=== PATIENT | female | born 1940 | race Caucasian/White ===

== ENCOUNTER 2020-09-17 12:28 | Outpatient (CLI) | payer MEDICARE, BC | END 2020-09-17 12:29 | disposition home or self-care (01) | LOC: CSHMAMMO 12:28 | PROVIDERS: ATTEND Internal Medicine | DX: R92.8 Other abnormal and inconclusive findings on diagnostic imaging of breast (principal) | CPT/HCPCS: G0279 ==

== ENCOUNTER 2021-03-28 07:49 | Inpatient (IN) | payer MEDICARE, BC ==
[2021-03-28 08:43] LABS: #Eosinphils 0.1 10x3/uL (0.0-0.5); #Monocytes 0.8 10x3/uL (0.0-1.1); %Basophils 0.4 % (0.0-2.0); %Eosinophils 1.3 % (0.0-6.0); %Lymphocytes 12.6 % (18.0-47.0); %Monocytes 7.7 % (0.0-10.0); %Neutrophils 77.5 % (40.0-75.0); Hemoglobin 12.7 g/dL (12.0-15.5); Mean Corpuscular HGB CONC 33.8 g/dL (32.0-36.0); Mean Corpuscular Hemoglobin 30.2 pg (27.0-33.0); Mean Corpuscular Volume 89.5 fl (81.6-98.3); Mean Platelet Volume 9.7 fl (7.4-10.4); Platelet Count 205 10x3/uL (150-450); RBC Distribution Width 13.6 % (11.5-14.5); White Blood Cell (WBC) Count 10.3 10x3/uL (3.5-10.5)
[2021-03-28] MEDS ORDERED: Cefepime 2 GM VIAL ONE (08:49)
[2021-03-28 08:55] LABS: ALT (SGPT) 13 U/L (8-55); AST (SGOT) 13 U/L (5-34); Albumin 3.5 g/dL (3.4-4.8); Alkaline Phosphatase 66 U/L (40-110); Anion Gap 13 mmol/L (10-20); BUN (Urea Nitrogen) 20 mg/dL (9.8-20.1); Bilirubin, Total 0.5 mg/dL (0.2-1.2); Calc. Creatinine Clearance 0 mL/min (70-130); Calcium 9.2 mg/dL (7.8-10.44); Carbon Dioxide 21 mmol/L (23-31); Chloride 106 mmol/L (98-107); Glucose 129 mg/dL (83-110); Potassium 3.8 mmol/L (3.5-5.1); Protein, Total 6.5 g/dL (5.8-8.1); Sodium 136 mmol/L (136-145)
[2021-03-28] MEDS ORDERED: Ondansetron PF 4 MG/2 ML Vial IVP PRN (10:45)
[2021-03-28] MEDS ORDERED: HYDROcodone/Acetaminophen 5/325 mg Tablet PO PRN (10:45)
[2021-03-28] MEDS ORDERED: Acetaminophen 325 MG TAB PO PRN (10:45)
[2021-03-28] MEDS ORDERED: Senokot S 8.6-50 MG TAB PO PRN (10:45)
[2021-03-28] MEDS ORDERED: Lidocaine 1% w/Epinephrine 1:100K 20 ML VIAL IJ PRN (11:43)
[2021-03-28] MEDS ORDERED: Ibuprofen 600 MG TAB PO PRN (11:57)
[2021-03-28 12:36] VITALS: BMI 23.1
[2021-03-28] MEDS: HYDROcodone/Acetaminophen 5/325 mg Tablet PO PRN ×2 (17:50→21:52)
[2021-03-28] MEDS ORDERED: Zolpidem Tartrate 5 MG TAB PO SCH (23:00)
[2021-03-29] MEDS ORDERED: LUNESTA 3 MG PO SCH (00:30)
[2021-03-29] MEDS: HYDROcodone/Acetaminophen 5/325 mg Tablet PO PRN ×3 (03:54→20:57)
[2021-03-29 04:54] LABS: #Basophils 0.1 10x3/uL (0.0-0.2); #Eosinphils 0.2 10x3/uL (0.0-0.5); #Monocytes 0.9 10x3/uL (0.0-1.1); #Neutrophils 5.8 10x3/uL (1.5-8.4); %Basophils 0.7 % (0.0-2.0); %Eosinophils 2.5 % (0.0-6.0); %Neutrophils 64.6 % (40.0-75.0); Hemoglobin 11.8 g/dL (12.0-15.5); Mean Corpuscular HGB CONC 32.7 g/dL (32.0-36.0); Mean Corpuscular Hemoglobin 30.1 pg (27.0-33.0); Mean Corpuscular Volume 92.1 fl (81.6-98.3); Platelet Count 206 10x3/uL (150-450); RBC Distribution Width 13.4 % (11.5-14.5); Red Blood Cell (RBC) Count 3.92 10x6/uL (3.90-5.03); White Blood Cell (WBC) Count 8.9 10x3/uL (3.5-10.5)
[2021-03-29 05:03] LABS: ALT (SGPT) 11 U/L (8-55); AST (SGOT) 14 U/L (5-34); Albumin 3.3 g/dL (3.4-4.8); Alkaline Phosphatase 66 U/L (40-110); Anion Gap 13 mmol/L (10-20); BUN (Urea Nitrogen) 17 mg/dL (9.8-20.1); Bilirubin, Total 0.5 mg/dL (0.2-1.2); Calc. Creatinine Clearance 51 mL/min (70-130); Calcium 8.7 mg/dL (7.8-10.44); Carbon Dioxide 24 mmol/L (23-31); Chloride 108 mmol/L (98-107); Globulin 2.2 g/dL (2.4-3.5); Glucose 96 mg/dL (83-110); Magnesium 2.1 mg/dL (1.6-2.6); Phosphorus 3.9 mg/dL (2.3-4.7); Potassium 4.2 mmol/L (3.5-5.1); Protein, Total 5.5 g/dL (5.8-8.1); Sodium 141 mmol/L (136-145)
[2021-03-29 05:19] LABS: Free T4 (Free Thyroxine) 1.04 ng/dL (0.70-1.48); Thyroid Stimulating Hormone 6.5505 uIU/mL (0.35-4.94)
[2021-03-29] MEDS: Levothyroxine Sodium 88 MCG TAB PO SCH (05:36)
[2021-03-29] MEDS: Ubidecarenone 50 MG CAP PO SCH (08:29)
[2021-03-29] MEDS: Enoxaparin Sodium 40 MG/0.4 ML SYRINGE SC SCH (08:29)
[2021-03-29] MEDS: Multivitamin W/ Minerals 1 TAB PO SCH (08:30)
[2021-03-29] MEDS: Aspirin 325 mg Enteric Coated Tablet PO SCH (08:30)
[2021-03-29] MEDS: Vancomycin HCl 1 GM in Sodium Chloride 0.9% 250 ML 250 ML IVPB SCH (08:30)
[2021-03-29] MEDS ORDERED: RESVERATROL PO SCH (09:00)
[2021-03-29] MEDS ORDERED: GRAPE SKIN EXTRACT PO SCH (09:00)
[2021-03-29 12:08] LABS: SARS-CoV-2 PCR by NAA Not Detected (NotDetected)
[2021-03-29 12:31] LABS: Hemoglobin A1c 5.6 % (4.0-6.0)
[2021-03-29] MEDS: Atorvastatin Calcium 40 MG TAB PO SCH (21:00)
[2021-03-29] MEDS ORDERED: Zolpidem Tartrate 5 MG TAB PO SCH (21:00)
[2021-03-29] MEDS: LUNESTA 3 MG PO SCH (21:01)
[2021-03-29] MEDS: Bisacodyl 5 MG TAB PO PRN (21:01)
[2021-03-29] MEDS: cefTRIAXone\\ROCEPHIN 1 GM in Sodium Chloride 0.9% 100 ML IVPB SCH (21:18)
[2021-03-30] MEDS: HYDROcodone/Acetaminophen 5/325 mg Tablet PO PRN ×5 (04:13→20:18)
[2021-03-30 04:36] LABS: #Basophils 0.1 10x3/uL (0.0-0.2); #Eosinphils 0.3 10x3/uL (0.0-0.5); #Monocytes 0.8 10x3/uL (0.0-1.1); #Neutrophils 5.9 10x3/uL (1.5-8.4); %Basophils 0.7 % (0.0-2.0); %Eosinophils 2.9 % (0.0-6.0); %Lymphocytes 17.4 % (18.0-47.0); %Monocytes 9.8 % (0.0-10.0); %Neutrophils 69.1 % (40.0-75.0); Hemoglobin 11.5 g/dL (12.0-15.5); Mean Corpuscular Hemoglobin 29.8 pg (27.0-33.0); Mean Corpuscular Volume 90.4 fl (81.6-98.3); Mean Platelet Volume 9.5 fl (7.4-10.4); Platelet Count 232 10x3/uL (150-450); RBC Distribution Width 13.3 % (11.5-14.5); Red Blood Cell (RBC) Count 3.86 10x6/uL (3.90-5.03); White Blood Cell (WBC) Count 8.6 10x3/uL (3.5-10.5)
[2021-03-30 04:43] LABS: ALT (SGPT) 9 U/L (8-55); AST (SGOT) 14 U/L (5-34); Albumin 3.1 g/dL (3.4-4.8); Alkaline Phosphatase 65 U/L (40-110); Anion Gap 11 mmol/L (10-20); BUN (Urea Nitrogen) 16 mg/dL (9.8-20.1); Bilirubin, Total 0.4 mg/dL (0.2-1.2); Calc. Creatinine Clearance 58 mL/min (70-130); Calcium 8.4 mg/dL (7.8-10.44); Carbon Dioxide 24 mmol/L (23-31); Chloride 108 mmol/L (98-107); Globulin 2.1 g/dL (2.4-3.5); Glucose 110 mg/dL (83-110); Magnesium 2.1 mg/dL (1.6-2.6); Phosphorus 3.6 mg/dL (2.3-4.7); Potassium 3.9 mmol/L (3.5-5.1); Protein, Total 5.2 g/dL (5.8-8.1); Sodium 139 mmol/L (136-145)
[2021-03-30] MEDS: Levothyroxine Sodium 88 MCG TAB PO SCH (06:05)
[2021-03-30] MEDS: Multivitamin W/ Minerals 1 TAB PO SCH (08:32)
[2021-03-30] MEDS: Aspirin 325 mg Enteric Coated Tablet PO SCH (08:32)
[2021-03-30] MEDS: Enoxaparin Sodium 40 MG/0.4 ML SYRINGE SC SCH (08:32)
[2021-03-30] MEDS: Vancomycin HCl 1 GM in Sodium Chloride 0.9% 250 ML 250 ML IVPB SCH (08:33)
[2021-03-30] MEDS: Ubidecarenone 50 MG CAP PO SCH (08:33)
[2021-03-30 08:43] LABS: Vancomycin, Trough 4.5 ug/mL
[2021-03-30] MEDS: Bisacodyl 5 MG TAB PO PRN (16:53)
[2021-03-30] MEDS: Atorvastatin Calcium 40 MG TAB PO SCH (20:18)
[2021-03-30] MEDS: cefTRIAXone\\ROCEPHIN 1 GM in Sodium Chloride 0.9% 100 ML IVPB SCH (20:19)
[2021-03-30] MEDS: Vancomycin HCl 750 MG in Sodium Chloride 0.9% 250 ML 250 ML IVPB SCH (21:02)
[2021-03-30] MEDS: LUNESTA 3 MG PO SCH (21:40)
[2021-03-31] MEDS: HYDROcodone/Acetaminophen 5/325 mg Tablet PO PRN ×3 (03:27→22:12)
[2021-03-31] MEDS: Levothyroxine Sodium 75 MCG TAB PO SCH (05:29)
[2021-03-31 07:24] LABS: #Basophils 0.1 10x3/uL (0.0-0.2); #Eosinphils 0.3 10x3/uL (0.0-0.5); #Monocytes 0.7 10x3/uL (0.0-1.1); #Neutrophils 4.7 10x3/uL (1.5-8.4); %Basophils 0.7 % (0.0-2.0); %Eosinophils 3.5 % (0.0-6.0); %Lymphocytes 23.1 % (18.0-47.0); %Monocytes 8.9 % (0.0-10.0); %Neutrophils 63.4 % (40.0-75.0); Hemoglobin 10.6 g/dL (12.0-15.5); Mean Corpuscular HGB CONC 31.8 g/dL (32.0-36.0); Mean Corpuscular Hemoglobin 29.3 pg (27.0-33.0); Mean Platelet Volume 9.2 fl (7.4-10.4); Platelet Count 259 10x3/uL (150-450); RBC Distribution Width 13.2 % (11.5-14.5); Red Blood Cell (RBC) Count 3.62 10x6/uL (3.90-5.03); White Blood Cell (WBC) Count 7.4 10x3/uL (3.5-10.5)
[2021-03-31 07:46] LABS: ALT (SGPT) 9 U/L (8-55); AST (SGOT) 13 U/L (5-34); Albumin 2.9 g/dL (3.4-4.8); Alkaline Phosphatase 63 U/L (40-110); Anion Gap 11 mmol/L (10-20); BUN (Urea Nitrogen) 12 mg/dL (9.8-20.1); Bilirubin, Total 0.3 mg/dL (0.2-1.2); Calc. Creatinine Clearance 59 mL/min (70-130); Calcium 8.2 mg/dL (7.8-10.44); Carbon Dioxide 25 mmol/L (23-31); Chloride 109 mmol/L (98-107); Glucose 95 mg/dL (83-110); Magnesium 2.2 mg/dL (1.6-2.6); Phosphorus 3.7 mg/dL (2.3-4.7); Potassium 4.2 mmol/L (3.5-5.1); Protein, Total 4.9 g/dL (5.8-8.1); Sodium 141 mmol/L (136-145)
[2021-03-31] MEDS: Ubidecarenone 50 MG CAP PO SCH (08:43)
[2021-03-31] MEDS: Multivitamin W/ Minerals 1 TAB PO SCH (08:45)
[2021-03-31] MEDS: Aspirin 325 mg Enteric Coated Tablet PO SCH (08:46)
[2021-03-31] MEDS: Enoxaparin Sodium 40 MG/0.4 ML SYRINGE SC SCH (08:46)
[2021-03-31] MEDS: Vancomycin HCl 750 MG in Sodium Chloride 0.9% 250 ML 250 ML IVPB SCH ×2 (08:50→22:11)
[2021-03-31 21:34] LABS: Vancomycin, Trough 8.5 ug/mL
[2021-03-31] MEDS: cefTRIAXone\\ROCEPHIN 1 GM in Sodium Chloride 0.9% 100 ML IVPB SCH (22:11)
[2021-03-31] MEDS: Atorvastatin Calcium 40 MG TAB PO SCH (22:12)
[2021-03-31] MEDS: LUNESTA 3 MG PO SCH (22:56)
[2021-04-01 05:31] LABS: #Basophils 0.1 10x3/uL (0.0-0.2); #Eosinphils 0.3 10x3/uL (0.0-0.5); #Monocytes 0.5 10x3/uL (0.0-1.1); #Neutrophils 3.2 10x3/uL (1.5-8.4); %Basophils 0.9 % (0.0-2.0); %Eosinophils 4.9 % (0.0-6.0); %Lymphocytes 29.8 % (18.0-47.0); %Monocytes 8.4 % (0.0-10.0); %Neutrophils 55.7 % (40.0-75.0); Mean Corpuscular Hemoglobin 29.3 pg (27.0-33.0); Mean Corpuscular Volume 91.7 fl (81.6-98.3); Mean Platelet Volume 9.1 fl (7.4-10.4); Platelet Count 290 10x3/uL (150-450); RBC Distribution Width 13.2 % (11.5-14.5); Red Blood Cell (RBC) Count 3.75 10x6/uL (3.90-5.03); White Blood Cell (WBC) Count 5.7 10x3/uL (3.5-10.5)
[2021-04-01 06:04] LABS: ALT (SGPT) 11 U/L (8-55); AST (SGOT) 16 U/L (5-34); Alkaline Phosphatase 65 U/L (40-110); Anion Gap 12 mmol/L (10-20); BUN (Urea Nitrogen) 10 mg/dL (9.8-20.1); Bilirubin, Total 0.3 mg/dL (0.2-1.2); Calc. Creatinine Clearance 57 mL/min (70-130); Calcium 8.5 mg/dL (7.8-10.44); Carbon Dioxide 25 mmol/L (23-31); Chloride 110 mmol/L (98-107); Globulin 2.1 g/dL (2.4-3.5); Glucose 93 mg/dL (83-110); Magnesium 2.2 mg/dL (1.6-2.6); Phosphorus 3.9 mg/dL (2.3-4.7); Potassium 4.2 mmol/L (3.5-5.1); Protein, Total 5.1 g/dL (5.8-8.1); Sodium 143 mmol/L (136-145)
[2021-04-01] MEDS: Levothyroxine Sodium 75 MCG TAB PO SCH (06:12)
[2021-04-01] MEDS: Levothyroxine Sodium 100 MCG TAB PO SCH (06:12)
[2021-04-01] MEDS ORDERED: diphenhydrAMINE 25 MG CAP PO PRN (07:39)
[2021-04-01] MEDS: Ubidecarenone 50 MG CAP PO SCH (09:57)
[2021-04-01] MEDS: Aspirin 325 mg Enteric Coated Tablet PO SCH (09:58)
[2021-04-01] MEDS: HYDROcodone/Acetaminophen 5/325 mg Tablet PO PRN ×3 (09:58→20:59)
[2021-04-01] MEDS: Methyl Salicylate/Menthol 85 GM TUBE TOP SCH ×3 (10:00→21:03)
[2021-04-01] MEDS: Multivitamin W/ Minerals 1 TAB PO SCH (10:01)
[2021-04-01] MEDS: Vancomycin HCl 1 GM in Sodium Chloride 0.9% 250 ML 250 ML IVPB SCH ×2 (10:01→21:02)
[2021-04-01] MEDS: Enoxaparin Sodium 40 MG/0.4 ML SYRINGE SC SCH (10:01)
[2021-04-01] MEDS: Polyethylene Glycol 3350 17 GM Packet PO SCH ×2 (10:01→22:43)
[2021-04-01] MEDS: Atorvastatin Calcium 40 MG TAB PO SCH (20:58)
[2021-04-01] MEDS: cefTRIAXone\\ROCEPHIN 1 GM in Sodium Chloride 0.9% 100 ML IVPB SCH (22:40)
[2021-04-01] MEDS: LUNESTA 3 MG PO SCH (22:41)
[2021-04-02] MEDS: Levothyroxine Sodium 100 MCG TAB PO SCH (05:53)
[2021-04-02 06:31] LABS: #Basophils 0.1 10x3/uL (0.0-0.2); #Eosinphils 0.3 10x3/uL (0.0-0.5); #Monocytes 0.5 10x3/uL (0.0-1.1); #Neutrophils 2.7 10x3/uL (1.5-8.4); %Eosinophils 4.9 % (0.0-6.0); %Lymphocytes 32.6 % (18.0-47.0); %Monocytes 9.5 % (0.0-10.0); %Neutrophils 51.6 % (40.0-75.0); Hemoglobin 10.9 g/dL (12.0-15.5); Mean Corpuscular Hemoglobin 29.4 pg (27.0-33.0); Mean Corpuscular Volume 91.9 fl (81.6-98.3); Mean Platelet Volume 9.3 fl (7.4-10.4); Platelet Count 309 10x3/uL (150-450); RBC Distribution Width 13.2 % (11.5-14.5); Red Blood Cell (RBC) Count 3.71 10x6/uL (3.90-5.03); White Blood Cell (WBC) Count 5.2 10x3/uL (3.5-10.5)
[2021-04-02 06:51] LABS: ALT (SGPT) 15 U/L (8-55); AST (SGOT) 20 U/L (5-34); Albumin 3.1 g/dL (3.4-4.8); Alkaline Phosphatase 65 U/L (40-110); Anion Gap 13 mmol/L (10-20); BUN (Urea Nitrogen) 14 mg/dL (9.8-20.1); Bilirubin, Total 0.2 mg/dL (0.2-1.2); Calc. Creatinine Clearance 61 mL/min (70-130); Calcium 8.5 mg/dL (7.8-10.44); Carbon Dioxide 22 mmol/L (23-31); Chloride 111 mmol/L (98-107); Glucose 98 mg/dL (83-110); Magnesium 2.2 mg/dL (1.6-2.6); Phosphorus 4.2 mg/dL (2.3-4.7); Potassium 4.1 mmol/L (3.5-5.1); Protein, Total 5.1 g/dL (5.8-8.1); Sodium 142 mmol/L (136-145)
[2021-04-02 08:12] LABS: Vancomycin, Trough 16.8 ug/mL
[2021-04-02] MEDS: Ubidecarenone 50 MG CAP PO SCH (10:18)
[2021-04-02] MEDS: Polyethylene Glycol 3350 17 GM Packet PO SCH ×2 (10:19→20:41)
[2021-04-02] MEDS: Methyl Salicylate/Menthol 85 GM TUBE TOP SCH (10:19)
[2021-04-02] MEDS: Multivitamin W/ Minerals 1 TAB PO SCH (10:19)
[2021-04-02] MEDS: Aspirin 325 mg Enteric Coated Tablet PO SCH (10:19)
[2021-04-02] MEDS: Enoxaparin Sodium 40 MG/0.4 ML SYRINGE SC SCH (10:19)
[2021-04-02] MEDS ORDERED: Menthol/Camphor Lotion 222 ml Bottle TOP SCH (11:00)
[2021-04-02] MEDS: HYDROcodone/Acetaminophen 5/325 mg Tablet PO PRN (12:06)
[2021-04-02] MEDS: Menthol/Camphor Lotion 222 ml Bottle TOP SCH ×2 (15:43→20:43)
[2021-04-02] MEDS: Cephalexin 500 MG CAP PO SCH ×2 (18:17→23:23)
[2021-04-02] MEDS: Atorvastatin Calcium 40 MG TAB PO SCH (20:36)
[2021-04-02] MEDS: LUNESTA 3 MG PO SCH (20:36)
[2021-04-03 05:54] LABS: ALT (SGPT) 20 U/L (8-55); AST (SGOT) 27 U/L (5-34); Albumin 3.1 g/dL (3.4-4.8); Alkaline Phosphatase 78 U/L (40-110); Anion Gap 13 mmol/L (10-20); BUN (Urea Nitrogen) 14 mg/dL (9.8-20.1); Bilirubin, Total 0.2 mg/dL (0.2-1.2); Calc. Creatinine Clearance 58 mL/min (70-130); Calcium 8.8 mg/dL (7.8-10.44); Carbon Dioxide 23 mmol/L (23-31); Chloride 110 mmol/L (98-107); Globulin 2.1 g/dL (2.4-3.5); Glucose 104 mg/dL (83-110); Magnesium 2.3 mg/dL (1.6-2.6); Phosphorus 4.2 mg/dL (2.3-4.7); Protein, Total 5.2 g/dL (5.8-8.1); Sodium 142 mmol/L (136-145)
[2021-04-03] MEDS: Cephalexin 500 MG CAP PO SCH ×2 (06:13→13:06)
[2021-04-03] MEDS: Levothyroxine Sodium 100 MCG TAB PO SCH (06:13)
[2021-04-03 06:24] LABS: #Basophils 0.1 10x3/uL (0.0-0.2); #Eosinphils 0.2 10x3/uL (0.0-0.5); #Monocytes 0.5 10x3/uL (0.0-1.1); #Neutrophils 2.9 10x3/uL (1.5-8.4); %Basophils 1.3 % (0.0-2.0); %Eosinophils 3.8 % (0.0-6.0); %Lymphocytes 33.7 % (18.0-47.0); %Monocytes 8.7 % (0.0-10.0); Hemoglobin 11.8 g/dL (12.0-15.5); Mean Corpuscular HGB CONC 32.9 g/dL (32.0-36.0); Mean Corpuscular Hemoglobin 29.6 pg (27.0-33.0); Mean Corpuscular Volume 90.2 fl (81.6-98.3); Platelet Count 322 10x3/uL (150-450); RBC Distribution Width 13.2 % (11.5-14.5); Red Blood Cell (RBC) Count 3.98 10x6/uL (3.90-5.03); White Blood Cell (WBC) Count 5.5 10x3/uL (3.5-10.5)
[2021-04-03] MEDS: Ubidecarenone 50 MG CAP PO SCH (09:57)
[2021-04-03] MEDS: Enoxaparin Sodium 40 MG/0.4 ML SYRINGE SC SCH (09:58)
[2021-04-03] MEDS: Polyethylene Glycol 3350 17 GM Packet PO SCH (09:58)
[2021-04-03] MEDS: Multivitamin W/ Minerals 1 TAB PO SCH (09:58)
[2021-04-03] MEDS: Aspirin 325 mg Enteric Coated Tablet PO SCH (09:58)
[2021-04-03] MEDS: Menthol/Camphor Lotion 222 ml Bottle TOP SCH (10:04)
[2021-04-03 11:44] VITALS: BP 140/74; TEMP 98.8
== END 2021-04-03 13:55 | disposition home health service (06) | DRG 603 ==
LOC: SUATTDRO 07:49 → CSHERS 07:49 → CSHTELE 12:05 → OBSVTOIN 03-29 13:46
PROVIDERS: ADMIT Family Medicine; ATTEND Internal Medicine
PROC: 0H9KXZZ Drainage of Right Lower Leg Skin, External Approach (ICD-10-PCS; principal; 2021-03-28)
DX: L03.115 Cellulitis of right lower limb (principal); Z20.822 Contact with and (suspected) exposure to COVID-19; E03.9 Hypothyroidism, unspecified; L02.415 Cutaneous abscess of right lower limb; M85.861 Other specified disorders of bone density and structure, right lower leg; Z78.0 Asymptomatic menopausal state; Z86.73 Personal history of transient ischemic attack (TIA), and cerebral infarction without residual deficits; J30.9 Allergic rhinitis, unspecified; Z79.82 Long term (current) use of aspirin; Z79.890 Hormone replacement therapy; Z79.899 Other long term (current) drug therapy; Z90.710 Acquired absence of both cervix and uterus; Z88.8 Allergy status to other drugs, medicaments and biological substances; Z91.048 Other nonmedicinal substance allergy status; G50.0 Trigeminal neuralgia; R59.1 Generalized enlarged lymph nodes; E78.5 Hyperlipidemia, unspecified; Z90.89 Acquired absence of other organs
CPT/HCPCS: 36415; 36416; 80053; 80202; 83036; 83605; 83735; 84100; 84439; 84443; 84481; 85025; 86140; 87040; 87070; 87205; 93923; 96365; 96366; 96368; G0378; J0692; J0696; J1650; J3370; J3490; J7050; U0003; U0005

== ENCOUNTER 2021-08-03 12:39 | Inpatient (IN) | payer MEDICARE, BC ==
[2021-08-03 12:59] LABS: #Basophils 0.1 10x3/uL (0.0-0.2); #Eosinphils 0.2 10x3/uL (0.0-0.5); #Monocytes 0.3 10x3/uL (0.0-1.1); %Basophils 1.4 % (0.0-2.0); %Eosinophils 3.5 % (0.0-6.0); %Lymphocytes 34.9 % (18.0-47.0); %Monocytes 6.5 % (0.0-10.0); Hemoglobin 14.3 g/dL (12.0-15.5); Mean Corpuscular HGB CONC 33.6 g/dL (32.0-36.0); Mean Corpuscular Hemoglobin 30.1 pg (27.0-33.0); Mean Corpuscular Volume 89.5 fl (81.6-98.3); Mean Platelet Volume 9.5 fl (7.4-10.4); Platelet Count 229 10x3/uL (150-450); RBC Distribution Width 13.1 % (11.5-14.5); Red Blood Cell (RBC) Count 4.75 10x6/uL (3.90-5.03); White Blood Cell (WBC) Count 5.1 10x3/uL (3.5-10.5)
[2021-08-03 13:00] LABS: #Neutrophils 2.7 10x3/uL (1.5-8.4); %Neutrophils 53.7 % (40.0-75.0)
[2021-08-03 13:14] LABS: ALT (SGPT) 25 U/L (8-55); AST (SGOT) 27 U/L (5-34); Albumin 4.1 g/dL (3.4-4.8); Alkaline Phosphatase 73 U/L (40-110); Anion Gap 14 mmol/L (10-20); BUN (Urea Nitrogen) 22 mg/dL (9.8-20.1); Bilirubin, Total 0.6 mg/dL (0.2-1.2); Calc. Creatinine Clearance 0 mL/min (70-130); Calcium 9.6 mg/dL (7.8-10.44); Carbon Dioxide 23 mmol/L (23-31); Chloride 107 mmol/L (98-107); Globulin 2.3 g/dL (2.4-3.5); Glucose 99 mg/dL (83-110); Potassium 4.1 mmol/L (3.5-5.1); Protein, Total 6.4 g/dL (5.8-8.1); Sodium 140 mmol/L (136-145)
[2021-08-03] MEDS ORDERED: Aspirin Chewable 81 MG TAB ONE (13:31)
[2021-08-03] MEDS ORDERED: Ondansetron ODT 4 MG TAB PO PRN (14:54)
[2021-08-03] MEDS ORDERED: Acetaminophen 650 MG Suppository PR PRN (14:54)
[2021-08-03] MEDS ORDERED: Ondansetron PF 4 MG/2 ML Vial IVP PRN (14:54)
[2021-08-03] MEDS ORDERED: hydrALAZINE 20 MG/ML VIAL SLOW IVP PRN (14:54)
[2021-08-03 15:34] VITALS: BMI 22.8
[2021-08-03] MEDS: Atorvastatin Calcium 40 MG TAB PO SCH (21:05)
[2021-08-03] MEDS: Melatonin 3 MG TAB PO PRN (21:06)
[2021-08-04 00:03] LABS: SARS-CoV-2 NAA Rapid Test Not Detected (NotDetected)
[2021-08-04] MEDS: Acetaminophen 325 MG TAB PO PRN ×3 (02:13→20:23)
[2021-08-04 03:54] LABS: #Basophils 0.1 10x3/uL (0.0-0.2); #Eosinphils 0.3 10x3/uL (0.0-0.5); #Monocytes 0.5 10x3/uL (0.0-1.1); #Neutrophils 3.5 10x3/uL (1.5-8.4); %Basophils 0.9 % (0.0-2.0); %Lymphocytes 33.1 % (18.0-47.0); %Monocytes 7.5 % (0.0-10.0); Hemoglobin 13.7 g/dL (12.0-15.5); Mean Corpuscular HGB CONC 33.5 g/dL (32.0-36.0); Mean Corpuscular Hemoglobin 30.2 pg (27.0-33.0); Mean Corpuscular Volume 90.3 fl (81.6-98.3); Mean Platelet Volume 9.5 fl (7.4-10.4); Platelet Count 229 10x3/uL (150-450); RBC Distribution Width 13.2 % (11.5-14.5); Red Blood Cell (RBC) Count 4.53 10x6/uL (3.90-5.03); White Blood Cell (WBC) Count 6.6 10x3/uL (3.5-10.5)
[2021-08-04 04:09] LABS: Anion Gap 13 mmol/L (10-20); BUN (Urea Nitrogen) 20 mg/dL (9.8-20.1); Calc. Creatinine Clearance 57 mL/min (70-130); Calcium 9.3 mg/dL (7.8-10.44); Carbon Dioxide 22 mmol/L (23-31); Chloride 109 mmol/L (98-107); Cholesterol 201 mg/dl (< 200 Desired); Glucose 94 mg/dL (83-110); HDL Cholesterol 50 mg/dL (>60 Neg Risk); LDL Cholesterol, Calculated 127 mg/dL; Potassium 3.8 mmol/L (3.5-5.1); Sodium 140 mmol/L (136-145); Triglycerides 118 mg/dL (Less than 150)
[2021-08-04] MEDS ORDERED: Levothyroxine Sodium 100 MCG TAB PO SCH (06:00)
[2021-08-04] MEDS ORDERED: Levothyroxine Sodium 88 MCG TAB PO SCH (08:15)
[2021-08-04] MEDS: Cholecalciferol 1,000 UNITS (25 MCG) TAB PO SCH ×2 (08:41→20:23)
[2021-08-04] MEDS: Folic Acid/Vit B Comp W-C PO SCH (08:41)
[2021-08-04] MEDS ORDERED: Aspirin 325 mg Enteric Coated Tablet PO SCH (09:00)
[2021-08-04] MEDS ORDERED: Lorazepam 1 MG TAB PO SCH (09:15)
[2021-08-04] MEDS: Melatonin 3 MG TAB PO PRN (20:22)
[2021-08-04] MEDS: Atorvastatin Calcium 40 MG TAB PO SCH (20:23)
[2021-08-05 04:52] LABS: Anion Gap 14 mmol/L (10-20); BUN (Urea Nitrogen) 20 mg/dL (9.8-20.1); Calc. Creatinine Clearance 58 mL/min (70-130); Calcium 9.1 mg/dL (7.8-10.44); Carbon Dioxide 20 mmol/L (23-31); Chloride 106 mmol/L (98-107); Glucose 97 mg/dL (83-110); Sodium 136 mmol/L (136-145)
[2021-08-05 04:56] LABS: Potassium 4.3 mmol/L (3.5-5.1)
[2021-08-05 05:27] LABS: #Basophils 0.1 10x3/uL (0.0-0.2); #Eosinphils 0.3 10x3/uL (0.0-0.5); #Monocytes 0.5 10x3/uL (0.0-1.1); #Neutrophils 3.6 10x3/uL (1.5-8.4); %Basophils 0.7 % (0.0-2.0); %Eosinophils 3.9 % (0.0-6.0); %Lymphocytes 33.9 % (18.0-47.0); %Monocytes 7.4 % (0.0-10.0); Mean Corpuscular HGB CONC 33.8 g/dL (32.0-36.0); Mean Corpuscular Hemoglobin 30.4 pg (27.0-33.0); Mean Corpuscular Volume 89.8 fl (81.6-98.3); Mean Platelet Volume 9.5 fl (7.4-10.4); Platelet Count 223 10x3/uL (150-450); RBC Distribution Width 13.2 % (11.5-14.5); Red Blood Cell (RBC) Count 4.61 10x6/uL (3.90-5.03); White Blood Cell (WBC) Count 6.7 10x3/uL (3.5-10.5)
[2021-08-05] MEDS ORDERED: Levothyroxine Sodium 88 MCG TAB PO SCH (06:00)
[2021-08-05] MEDS: Cholecalciferol 1,000 UNITS (25 MCG) TAB PO SCH (08:08)
[2021-08-05] MEDS: Acetaminophen 325 MG TAB PO PRN (08:08)
[2021-08-05] MEDS: Folic Acid/Vit B Comp W-C PO SCH (08:19)
[2021-08-05] MEDS ORDERED: Clopidogrel Bisulfate 75 MG TAB PO SCH (09:00)
[2021-08-05] MEDS ORDERED: Aspirin 81 mg Enteric Coated Tablet PO SCH (09:00)
[2021-08-05 11:22] VITALS: BP 135/70; TEMP 97.6
[2021-08-05 12:31] LABS: Hemoglobin A1c 5.6 % (4.0-6.0)
== END 2021-08-05 12:30 | disposition home or self-care (01) | DRG 65 ==
LOC: CSHERS 12:39 → CSHTELE 15:06 → OBSVTOIN 08-04 15:36
PROVIDERS: ADMIT Family Medicine; ATTEND Family Medicine
DX: I63.9 Cerebral infarction, unspecified (principal); I16.1 Hypertensive emergency; E78.5 Hyperlipidemia, unspecified; E03.9 Hypothyroidism, unspecified; M85.80 Other specified disorders of bone density and structure, unspecified site; R47.81 Slurred speech; R47.1 Dysarthria and anarthria; Z88.8 Allergy status to other drugs, medicaments and biological substances; Z79.82 Long term (current) use of aspirin; Z79.899 Other long term (current) drug therapy; Z79.2 Long term (current) use of antibiotics; Z86.73 Personal history of transient ischemic attack (TIA), and cerebral infarction without residual deficits; Z90.710 Acquired absence of both cervix and uterus
CPT/HCPCS: 36415; 36416; 70450; 70551; 71045; 80048; 80053; 80061; 83036; 84443; 84484; 85025; 93005; 93306; 93880; 94760; G0378; U0002

== ENCOUNTER 2021-10-02 12:15 | Outpatient (CLI) | payer MEDICARE, BC | END 2021-10-02 12:16 | disposition home or self-care (01) | LOC: CSHMAMMO 12:15 | PROVIDERS: ATTEND Internal Medicine | DX: N63.11 Unspecified lump in the right breast, upper outer quadrant (principal) | CPT/HCPCS: 76642; 77065; G0279 ==

== ENCOUNTER → 2021-10-04 | Day surgery (SDC) | payer MEDICARE, BC | END | disposition home or self-care (01) | LOC: CSHULT 09:22 | PROVIDERS: ATTEND Internal Medicine | PROC: 0H9T3ZX Drainage of Right Breast, Percutaneous Approach, Diagnostic (ICD-10-PCS; principal; 2021-10-04) | DX: C50.411 Malignant neoplasm of upper-outer quadrant of right female breast (principal); Z91.048 Other nonmedicinal substance allergy status | CPT/HCPCS: 19083; 88305; 88341; 88342 ==

== ENCOUNTER 2022-01-02 13:42 | Outpatient (CLI) | payer MEDICARE, BC | END 2022-01-02 13:43 | disposition home or self-care (01) | LOC: CSHMAMMO 13:42 | PROVIDERS: ATTEND Internal Medicine Hematology & Oncology | DX: Z13.820 Encounter for screening for osteoporosis (principal); T38.6X5A Adverse effect of antigonadotrophins, antiestrogens, antiandrogens, not elsewhere classified, initial encounter; M85.851 Other specified disorders of bone density and structure, right thigh | CPT/HCPCS: 77080 ==

== ENCOUNTER 2022-01-17 13:46 | Inpatient (IN) | payer MEDICARE, BC ==
[~2022-01-17 13:46] MED LIST: Iopamidol 370 76% 100 ML VIAL ONE
[2022-01-17 14:16] LABS: #Basophils 0.1 10x3/uL (0.0-0.2); #Eosinphils 0.2 10x3/uL (0.0-0.5); #Monocytes 0.4 10x3/uL (0.0-1.1); #Neutrophils 2.5 10x3/uL (1.5-8.4); %Eosinophils 3.5 % (0.0-6.0); %Lymphocytes 36.6 % (18.0-47.0); %Monocytes 7.2 % (0.0-10.0); %Neutrophils 51.5 % (40.0-75.0); Hemoglobin 14.2 g/dL (12.0-15.5); Mean Corpuscular HGB CONC 34.6 g/dL (32.0-36.0); Mean Corpuscular Hemoglobin 30.5 pg (27.0-33.0); Mean Corpuscular Volume 88.2 fl (81.6-98.3); Mean Platelet Volume 9.3 fl (7.4-10.4); Platelet Count 238 10x3/uL (150-450); RBC Distribution Width 13.4 % (11.5-14.5); Red Blood Cell (RBC) Count 4.65 10x6/uL (3.90-5.03); White Blood Cell (WBC) Count 4.8 10x3/uL (3.5-10.5)
[2022-01-17 14:31] LABS: INR-International Normal Ratio 0.9; PTT 26.9 sec (22.0-33.0); Prothrombin Time 9.3 sec (9.5-12.1)
[2022-01-17 14:34] LABS: ALT (SGPT) 26 U/L (8-55); AST (SGOT) 25 U/L (5-34); Albumin 4.2 g/dL (3.4-4.8); Alkaline Phosphatase 85 U/L (40-110); Anion Gap 13 mmol/L (10-20); BUN (Urea Nitrogen) 19 mg/dL (9.8-20.1); Bilirubin, Total 0.4 mg/dL (0.2-1.2); CRP (Inflammatory) Less than 0.50 mg/dL (= or < 0.5); Calc. Creatinine Clearance 0 mL/min (70-130); Calcium 9.9 mg/dL (7.8-10.44); Carbon Dioxide 23 mmol/L (23-31); Chloride 107 mmol/L (98-107); Estimated GFR 78; Globulin 2.7 g/dL (2.4-3.5); Glucose 154 mg/dL (83-110); Potassium 3.7 mmol/L (3.5-5.1); Protein, Total 6.9 g/dL (5.8-8.1); Sodium 139 mmol/L (136-145)
[2022-01-17] MEDS ORDERED: Aspirin Chewable 81 MG TAB ONE (15:56)
[2022-01-17 18:09] LABS: Bilirubin Neg (Negative); Blood, Urine Negative (Negative); Clarity Clear (Clear); Glucose, Urine (Dipstick) Normal (Negative); Ketone, Urine Negative (Negative); Leukocyte 25 (Negative); Nitrite Negative (Negative); Protein, Urine (Dipstick) Negative (Neg-Trace); Specific Gravity, Urine 1.015 (1.002-1.036); Urobilinogen Normal mg/dL (Less than 2)
[2022-01-17 18:16] LABS: RBC/HPF 0-3 HPF (0-3)
[2022-01-17 18:17] LABS: Bacteria/HPF 2+ HPF (None Seen); Mucous/LPF 1+ LPF (<2+); Squamous Epithelial 0-3 HPF (0-3)
[2022-01-17 18:52] LABS: SARS-CoV-2 NAA Rapid Test Not Detected (NotDetected)
[2022-01-17 21:03] VITALS: BMI 22.8
[2022-01-17] MEDS ORDERED: Atorvastatin Calcium 20 MG TAB PO SCH (22:30)
[2022-01-18 04:33] LABS: #Basophils 0.1 10x3/uL (0.0-0.2); #Eosinphils 0.2 10x3/uL (0.0-0.5); #Monocytes 0.5 10x3/uL (0.0-1.1); %Basophils 1.1 % (0.0-2.0); %Eosinophils 3.8 % (0.0-6.0); %Lymphocytes 31.2 % (18.0-47.0); %Monocytes 8.9 % (0.0-10.0); %Neutrophils 54.8 % (40.0-75.0); Hemoglobin 13.4 g/dL (12.0-15.5); Mean Corpuscular HGB CONC 33.8 g/dL (32.0-36.0); Mean Corpuscular Hemoglobin 30.2 pg (27.0-33.0); Mean Corpuscular Volume 89.4 fl (81.6-98.3); Mean Platelet Volume 9.5 fl (7.4-10.4); Platelet Count 213 10x3/uL (150-450); RBC Distribution Width 13.5 % (11.5-14.5); Red Blood Cell (RBC) Count 4.43 10x6/uL (3.90-5.03); White Blood Cell (WBC) Count 5.5 10x3/uL (3.5-10.5)
[2022-01-18 04:46] LABS: Anion Gap 11 mmol/L (10-20); BUN (Urea Nitrogen) 16 mg/dL (9.8-20.1); Calc. Creatinine Clearance 62 mL/min (70-130); Calcium 9.4 mg/dL (7.8-10.44); Carbon Dioxide 23 mmol/L (23-31); Chloride 111 mmol/L (98-107); Estimated GFR 87; Glucose 92 mg/dL (83-110); Magnesium 2.3 mg/dL (1.6-2.6); Potassium 3.7 mmol/L (3.5-5.1); Sodium 141 mmol/L (136-145)
[2022-01-18 04:58] LABS: Cholesterol 199 mg/dl (< 200 Desired); HDL Cholesterol 50 mg/dL (>60 Neg Risk); LDL Cholesterol, Calculated 125 mg/dL; Triglycerides 119 mg/dL (Less than 150)
[2022-01-18] MEDS ORDERED: Levothyroxine Sodium 88 MCG TAB PO SCH (06:00)
[2022-01-18] MEDS ORDERED: GRAPE SKIN EXTRACT PO SCH (09:00)
[2022-01-18] MEDS ORDERED: Stress 600 With Zinc 1 TAB PO SCH (09:00)
[2022-01-18] MEDS ORDERED: Ubidecarenone 50 MG CAP PO SCH (09:00)
[2022-01-18] MEDS ORDERED: Ascorbic Acid 500 mg Chewable Tablet PO SCH (09:00)
[2022-01-18] MEDS ORDERED: [UNRECOGNIZED DRUG - OTHER] PO SCH (09:00)
[2022-01-18] MEDS ORDERED: Cholecalciferol 1,000 UNITS (25 MCG) TAB PO SCH (09:00)
[2022-01-18] MEDS ORDERED: Clopidogrel Bisulfate 75 MG TAB PO SCH (09:00)
[2022-01-18] MEDS ORDERED: RESVERATROL PO SCH (09:00)
[2022-01-18] MEDS ORDERED: Enoxaparin Sodium 40 MG/0.4 ML SYRINGE SC SCH (09:00)
[2022-01-18] MEDS ORDERED: Letrozole 2.5 MG TAB PO SCH (09:00)
[2022-01-18] MEDS ORDERED: Aspirin 81 mg Enteric Coated Tablet PO SCH (09:00)
[2022-01-18] MEDS ORDERED: Polyethylene Glycol 3350 17 GM Packet PO SCH (09:00)
[2022-01-18] MEDS ORDERED: Loratadine 10 MG TAB PO SCH (09:00)
[2022-01-18 13:15] LABS: Hemoglobin A1c 5.5 % (4.0-6.0)
[2022-01-18 16:59] LABS: ANA Symphony (Qualitative) Negative (Negative); ANA Symphony (Quantitative) 0.4 Ratio (< 0.7 Negative); dsDNA IgG Antibody 0.6 IU/mL (<10 Negative)
[2022-01-18 18:05] VITALS: BP 159/78; TEMP 99.2
[2022-01-18] MEDS ORDERED: Zolpidem Tartrate 5 MG TAB PO SCH (21:00)
[2022-01-18] MEDS ORDERED: Atorvastatin Calcium 20 MG TAB PO SCH (21:00)
== END 2022-01-18 18:49 | disposition home or self-care (01) | DRG 66 ==
LOC: CSHERS 13:46 → CSHTELE 20:42
PROVIDERS: ADMIT Family Medicine; ATTEND Family Medicine
DX: I63.9 Cerebral infarction, unspecified (principal); R47.81 Slurred speech; R29.810 Facial weakness; I10 Essential (primary) hypertension; E03.9 Hypothyroidism, unspecified; E78.00 Pure hypercholesterolemia, unspecified; C50.911 Malignant neoplasm of unspecified site of right female breast; Z20.822 Contact with and (suspected) exposure to COVID-19; M85.80 Other specified disorders of bone density and structure, unspecified site; E78.2 Mixed hyperlipidemia; Z86.73 Personal history of transient ischemic attack (TIA), and cerebral infarction without residual deficits; Z90.49 Acquired absence of other specified parts of digestive tract; Z90.710 Acquired absence of both cervix and uterus; Z88.8 Allergy status to other drugs, medicaments and biological substances; Z79.899 Other long term (current) drug therapy; Z87.891 Personal history of nicotine dependence; Z79.82 Long term (current) use of aspirin
CPT/HCPCS: 36415; 36416; 70450; 70496; 70498; 70551; 71045; 80048; 80053; 80061; 81003; 81015; 82550; 83036; 83735; 84443; 84484; 85025; 85610; 85652; 85730; 86038; 86140; 86225; 93005; 93306; 93880; J1650; Q9967; U0002

== ENCOUNTER 2022-06-13 18:21 | Inpatient (IN) | payer MEDICARE, BC ==
[2022-06-13] MEDS ORDERED: Acetaminophen 500 MG TAB ONE (19:05)
[2022-06-13 19:22] LABS: ALT (SGPT) 18 U/L (8-55); AST (SGOT) 23 U/L (5-34); Albumin 3.6 g/dL (3.4-4.8); Alkaline Phosphatase 106 U/L (40-110); Anion Gap 15 mmol/L (10-20); BUN (Urea Nitrogen) 26 mg/dL (9.8-20.1); Bilirubin, Total 0.7 mg/dL (0.2-1.2); Calc. Creatinine Clearance 0 mL/min (70-130); Calcium 9.1 mg/dL (7.8-10.44); Carbon Dioxide 21 mmol/L (23-31); Chloride 101 mmol/L (98-107); Estimated GFR 82; Globulin 2.4 g/dL (2.4-3.5); Glucose 130 mg/dL (83-110); Hemoglobin 13.4 g/dL (12.0-15.5); Mean Corpuscular HGB CONC 34.6 g/dL (32.0-36.0); Mean Corpuscular Hemoglobin 30.4 pg (27.0-33.0); Mean Corpuscular Volume 87.8 fl (81.6-98.3); Mean Platelet Volume 9.5 fl (7.4-10.4); Platelet Count 246 10x3/uL (150-450); RBC Distribution Width 13.8 % (11.5-14.5); Red Blood Cell (RBC) Count 4.41 10x6/uL (3.90-5.03); Sodium 133 mmol/L (136-145); White Blood Cell (WBC) Count 19.5 10x3/uL (3.5-10.5)
[2022-06-13] MEDS ORDERED: Cefepime 2 GM VIAL ONE (19:36)
[2022-06-13 19:44] LABS: MDiff Complete? YES
[2022-06-13] MEDS ORDERED: Vancomycin 1.5 GRAM/300 ML BAG 1.5 GM in Premix Bag 1 BAG IVPB SCH (19:45)
[2022-06-13 19:47] LABS: Band 13 % (5-11); Lymphocytes 6 % (21-51); Monocytes 7 % (0-10); Neutrophil 74 % (42-75)
[2022-06-13 19:48] LABS: Platelet Morphology Comment Appears Adequate; RBC Morphology N
[2022-06-13] MEDS ORDERED: Calcium Carbonate 500 MG ChewTAB PO PRN (19:55)
[2022-06-13] MEDS ORDERED: HYDROcodone/Acetaminophen 5/325 mg Tablet PO PRN (19:55)
[2022-06-13] MEDS ORDERED: Guaifenesin DM 100-10/5 ML UDCUP PO PRN (19:55)
[2022-06-13] MEDS ORDERED: Ondansetron PF 4 MG/2 ML Vial IVP PRN (19:55)
[2022-06-13] MEDS ORDERED: Lactated Ringer's 1,000 ML IV SCH (20:00)
[2022-06-13 20:15] LABS: SARS-CoV-2 NAA Rapid Test Not Detected (NotDetected)
[2022-06-13] MEDS ORDERED: GRAPE SKIN EXTRACT PO SCH (21:00)
[2022-06-13] MEDS ORDERED: RESVERATROL PO SCH (21:00)
[2022-06-13 21:58] LABS: Bilirubin Neg (Negative); Blood, Urine Negative (Negative); Clarity Clear (Clear); Glucose, Urine (Dipstick) Normal (Negative); Ketone, Urine 15 mg/dL (Negative); Leukocyte 25 (Negative); Nitrite Negative (Negative); Protein, Urine (Dipstick) 30 mg/dl (Neg-Trace); Urobilinogen Normal mg/dL (Less than 2)
[2022-06-13 22:02] LABS: Bacteria/HPF 2+ HPF (None Seen); Mucous/LPF 1+ LPF (<2+); RBC/HPF None Seen HPF (0-3); Squamous Epithelial 0-3 HPF (0-3); Transitional Epithelial 0-3 HPF (None Seen); WBC/HPF 0-3 HPF (0-3)
[2022-06-13] MEDS ORDERED: Zolpidem Tartrate 5 MG TAB ONE (22:31)
[2022-06-13] MEDS ORDERED: Benzonatate 100 MG CAP ONE (22:32)
[2022-06-13] MEDS ORDERED: Famotidine 20 MG TAB ONE (22:37)
[2022-06-13] MEDS ORDERED: Atorvastatin Calcium 40 MG TAB ONE (22:37)
[2022-06-14 00:42] VITALS: BMI 24.2
[2022-06-14 01:05] LABS: Legionella Urinary Ag Negative (Negative); Strep pneumo Urine Ag NEGATIVE (NEGATIVE)
[2022-06-14] MEDS: Atorvastatin Calcium 40 MG TAB PO SCH ×2 (03:11→20:13)
[2022-06-14] MEDS: Benzonatate 100 MG CAP PO SCH ×4 (03:11→20:16)
[2022-06-14] MEDS: Cholecalciferol 1,000 UNITS (25 MCG) TAB PO SCH ×3 (03:11→20:15)
[2022-06-14] MEDS: Famotidine 20 MG TAB PO SCH ×3 (03:11→20:15)
[2022-06-14] MEDS: Zolpidem Tartrate 5 MG TAB PO SCH ×2 (03:12→22:00)
[2022-06-14 04:28] LABS: Hemoglobin 12.2 g/dL (12.0-15.5); Mean Corpuscular HGB CONC 33.3 g/dL (32.0-36.0); Mean Corpuscular Hemoglobin 31.2 pg (27.0-33.0); Mean Corpuscular Volume 93.6 fl (81.6-98.3); Mean Platelet Volume 9.8 fl (7.4-10.4); Platelet Count 207 10x3/uL (150-450); RBC Distribution Width 14.2 % (11.5-14.5); Red Blood Cell (RBC) Count 3.91 10x6/uL (3.90-5.03); White Blood Cell (WBC) Count 20.7 10x3/uL (3.5-10.5)
[2022-06-14 04:37] LABS: Anion Gap 10 mmol/L (10-20); BUN (Urea Nitrogen) 17 mg/dL (9.8-20.1); Calc. Creatinine Clearance 72 mL/min (70-130); Calcium 8.8 mg/dL (7.8-10.44); Carbon Dioxide 19 mmol/L (23-31); Chloride 112 mmol/L (98-107); Estimated GFR 89; Glucose 123 mg/dL (83-110); Potassium 3.9 mmol/L (3.5-5.1); Sodium 137 mmol/L (136-145)
[2022-06-14 04:56] LABS: MDiff Complete? YES
[2022-06-14 05:02] LABS: Band 23 % (5-11); Lymphocytes 2 % (21-51); Metamyelocyte 1 % (0-0); Monocytes 4 % (0-10); Neutrophil 69 % (42-75); Reactive Lymphocytes 1 % (0-10)
[2022-06-14 05:03] LABS: Platelet Morphology Comment Appears Adequate; Toxic Granulation SLIGHT; Vacuoles SLIGHT
[2022-06-14 05:04] LABS: RBC Morphology Normal
[2022-06-14] MEDS: Levothyroxine Sodium 88 MCG TAB PO SCH (06:33)
[2022-06-14] MEDS ORDERED: CHROMIUM AMINO ACID CHELATE PO SCH (09:00)
[2022-06-14] MEDS ORDERED: Cefepime 2 GM VIAL ONE (09:39)
[2022-06-14] MEDS: Cefepime 2 GM in Sodium Chloride 0.9% 100 ML IVPB SCH ×2 (09:52→20:55)
[2022-06-14] MEDS: Ubidecarenone 50 MG CAP PO SCH (09:53)
[2022-06-14] MEDS: Loratadine 10 MG TAB PO SCH (09:53)
[2022-06-14] MEDS: Acetaminophen 325 MG TAB PO PRN (09:53)
[2022-06-14] MEDS: Stress 600 With Zinc 1 TAB PO SCH (09:53)
[2022-06-14] MEDS: Clopidogrel Bisulfate 75 MG TAB PO SCH (09:54)
[2022-06-14] MEDS: Aspirin 81 mg Enteric Coated Tablet PO SCH (09:55)
[2022-06-14] MEDS: Ascorbic Acid 500 mg Chewable Tablet PO SCH (09:55)
[2022-06-14] MEDS: Letrozole 2.5 MG TAB PO SCH (10:09)
[2022-06-14] MEDS ORDERED: VANCOMYCIN 1.25 GM/250 ML BAG 1.25 GM in Premix Bag 1 BAG IVPB SCH (21:00)
[2022-06-15 04:58] LABS: #Basophils 0.1 10x3/uL (0.0-0.2); #Eosinphils 0.1 10x3/uL (0.0-0.5); #Monocytes 0.8 10x3/uL (0.0-1.1); #Neutrophils 9.4 10x3/uL (1.5-8.4); %Basophils 0.4 % (0.0-2.0); %Eosinophils 1.2 % (0.0-6.0); %Lymphocytes 10.9 % (18.0-47.0); %Monocytes 6.7 % (0.0-10.0); %Neutrophils 80.4 % (40.0-75.0); Hemoglobin 11.3 g/dL (12.0-15.5); Mean Corpuscular HGB CONC 34.3 g/dL (32.0-36.0); Mean Corpuscular Hemoglobin 30.8 pg (27.0-33.0); Mean Corpuscular Volume 89.6 fl (81.6-98.3); Mean Platelet Volume 9.6 fl (7.4-10.4); Platelet Count 239 10x3/uL (150-450); RBC Distribution Width 14.5 % (11.5-14.5); Red Blood Cell (RBC) Count 3.67 10x6/uL (3.90-5.03); White Blood Cell (WBC) Count 11.7 10x3/uL (3.5-10.5)
[2022-06-15 05:07] LABS: Anion Gap 11 mmol/L (10-20); BUN (Urea Nitrogen) 14 mg/dL (9.8-20.1); Calc. Creatinine Clearance 71 mL/min (70-130); Calcium 8.7 mg/dL (7.8-10.44); Carbon Dioxide 21 mmol/L (23-31); Chloride 109 mmol/L (98-107); Estimated GFR 89; Glucose 105 mg/dL (83-110); Magnesium 2.2 mg/dL (1.6-2.6); Potassium 3.5 mmol/L (3.5-5.1); Sodium 137 mmol/L (136-145)
[2022-06-15] MEDS: Levothyroxine Sodium 88 MCG TAB PO SCH (07:12)
[2022-06-15] MEDS ORDERED: Cefepime 2 GM VIAL ONE (09:49)
[2022-06-15] MEDS: Ubidecarenone 50 MG CAP PO SCH (10:09)
[2022-06-15] MEDS: Ascorbic Acid 500 mg Chewable Tablet PO SCH (10:10)
[2022-06-15] MEDS: Cefepime 2 GM in Sodium Chloride 0.9% 100 ML IVPB SCH ×2 (10:10→20:46)
[2022-06-15] MEDS: Stress 600 With Zinc 1 TAB PO SCH (10:10)
[2022-06-15] MEDS: Cholecalciferol 1,000 UNITS (25 MCG) TAB PO SCH ×2 (10:10→20:47)
[2022-06-15] MEDS: Aspirin 81 mg Enteric Coated Tablet PO SCH (10:11)
[2022-06-15] MEDS: Letrozole 2.5 MG TAB PO SCH (10:11)
[2022-06-15] MEDS: Clopidogrel Bisulfate 75 MG TAB PO SCH (10:11)
[2022-06-15] MEDS: Loratadine 10 MG TAB PO SCH (10:11)
[2022-06-15] MEDS: Acetaminophen 325 MG TAB PO PRN ×2 (10:11→23:57)
[2022-06-15] MEDS: Famotidine 20 MG TAB PO SCH ×2 (10:11→20:47)
[2022-06-15 20:46] LABS: Vancomycin, Trough 6.4 ug/mL
[2022-06-15] MEDS: Atorvastatin Calcium 40 MG TAB PO SCH (20:47)
[2022-06-15] MEDS ORDERED: VANCOMYCIN 1.75 GM/350 ML BAG 1.75 GM in Premix Bag 1 BAG IVPB SCH (21:00)
[2022-06-16] MEDS: Zolpidem Tartrate 5 MG TAB PO SCH (03:44)
[2022-06-16 04:39] LABS: #Basophils 0.1 10x3/uL (0.0-0.2); #Eosinphils 0.2 10x3/uL (0.0-0.5); #Monocytes 0.9 10x3/uL (0.0-1.1); #Neutrophils 7.3 10x3/uL (1.5-8.4); %Basophils 0.7 % (0.0-2.0); %Eosinophils 2.2 % (0.0-6.0); %Lymphocytes 14.4 % (18.0-47.0); %Monocytes 8.6 % (0.0-10.0); Hemoglobin 11.3 g/dL (12.0-15.5); Mean Corpuscular HGB CONC 34.5 g/dL (32.0-36.0); Mean Corpuscular Hemoglobin 30.8 pg (27.0-33.0); Mean Corpuscular Volume 89.4 fl (81.6-98.3); Mean Platelet Volume 9.3 fl (7.4-10.4); Platelet Count 286 10x3/uL (150-450); RBC Distribution Width 14.3 % (11.5-14.5); Red Blood Cell (RBC) Count 3.67 10x6/uL (3.90-5.03)
[2022-06-16 04:42] LABS: Anion Gap 12 mmol/L (10-20); BUN (Urea Nitrogen) 10 mg/dL (9.8-20.1); Calc. Creatinine Clearance 69 mL/min (70-130); Calcium 9.1 mg/dL (7.8-10.44); Carbon Dioxide 22 mmol/L (23-31); Chloride 107 mmol/L (98-107); Estimated GFR 88; Glucose 106 mg/dL (83-110); Potassium 3.1 mmol/L (3.5-5.1); Sodium 138 mmol/L (136-145)
[2022-06-16] MEDS: Levothyroxine Sodium 88 MCG TAB PO SCH (05:06)
[2022-06-16 07:57] VITALS: TEMP 98.9
[2022-06-16] MEDS: Famotidine 20 MG TAB PO SCH (09:37)
[2022-06-16] MEDS: Clopidogrel Bisulfate 75 MG TAB PO SCH (09:37)
[2022-06-16] MEDS: Aspirin 81 mg Enteric Coated Tablet PO SCH (09:37)
[2022-06-16] MEDS: Ascorbic Acid 500 mg Chewable Tablet PO SCH (09:37)
[2022-06-16] MEDS: Cholecalciferol 1,000 UNITS (25 MCG) TAB PO SCH (09:37)
[2022-06-16] MEDS: Stress 600 With Zinc 1 TAB PO SCH (09:38)
[2022-06-16] MEDS: Ubidecarenone 50 MG CAP PO SCH (09:38)
[2022-06-16] MEDS: Letrozole 2.5 MG TAB PO SCH (09:38)
[2022-06-16] MEDS: Loratadine 10 MG TAB PO SCH (09:38)
[2022-06-16] MEDS ORDERED: Potassium Chloride 20 MEQ TAB PO SCH (09:45)
[2022-06-16 12:24] VITALS: BP 145/85
== END 2022-06-16 12:05 | disposition home or self-care (01) | DRG 871 ==
LOC: CSHERS 18:21 → CSHTELE 19:55 → UNDOADMIN 06-14 00:21 → CSHTELE 06-14 00:21
PROVIDERS: ADMIT Student in an Organized Health Care Education/Training Program; ATTEND Internal Medicine
DX: A41.9 Sepsis, unspecified organism (principal); J18.9 Pneumonia, unspecified organism; J96.01 Acute respiratory failure with hypoxia; N39.0 Urinary tract infection, site not specified; E87.1 Hypo-osmolality and hyponatremia; E87.6 Hypokalemia; E86.0 Dehydration; E87.5 Hyperkalemia; I10 Essential (primary) hypertension; E03.9 Hypothyroidism, unspecified; C50.911 Malignant neoplasm of unspecified site of right female breast; K44.9 Diaphragmatic hernia without obstruction or gangrene; Z60.2 Problems related to living alone; J98.2 Interstitial emphysema; M47.812 Spondylosis without myelopathy or radiculopathy, cervical region; Z20.822 Contact with and (suspected) exposure to COVID-19; Z79.899 Other long term (current) drug therapy; Z79.890 Hormone replacement therapy; Z86.73 Personal history of transient ischemic attack (TIA), and cerebral infarction without residual deficits; Z79.82 Long term (current) use of aspirin; Z79.02 Long term (current) use of antithrombotics/antiplatelets; Z91.048 Other nonmedicinal substance allergy status; Z90.89 Acquired absence of other organs; Z90.710 Acquired absence of both cervix and uterus; Z90.49 Acquired absence of other specified parts of digestive tract; Z98.49 Cataract extraction status, unspecified eye; Z80.3 Family history of malignant neoplasm of breast; Z82.49 Family history of ischemic heart disease and other diseases of the circulatory system; Z87.891 Personal history of nicotine dependence
CPT/HCPCS: 36415; 70450; 71045; 72125; 80048; 80053; 80202; 81003; 81015; 83605; 83735; 84145; 84484; 85025; 87040; 87077; 87081; 87086; 87186; 87449; 87899; 93005; 94760; 96374; 96375; J0692; J1650; J3370; J3490; J7120

== ENCOUNTER 2023-01-08 12:38 | Outpatient (CLI) | payer MEDICARE, BC | END 2023-01-08 12:39 | disposition home or self-care (01) | LOC: CSHMAMMO 12:38 | PROVIDERS: ATTEND Internal Medicine Hematology & Oncology | DX: Z13.820 Encounter for screening for osteoporosis (principal); M85.851 Other specified disorders of bone density and structure, right thigh; M85.852 Other specified disorders of bone density and structure, left thigh; T38.6X5A Adverse effect of antigonadotrophins, antiestrogens, antiandrogens, not elsewhere classified, initial encounter | CPT/HCPCS: 77080 ==